=== PATIENT | male | born 1965 | race Two or more races ===

== ENCOUNTER 2020-03-14 13:32 | Emergency (ER) | payer MEDICAID, OTHER ==
[~2020-03-14] VITALS: Ht 172.7 cm; Wt 81.6 kg
[2020-03-14 13:35] VITALS: BP 153/94
[2020-03-14] MEDS ORDERED: cefTRIAXone SOD 1,000 MG VL IM ONE (14:15)
[2020-03-14] MEDS ORDERED: DexAMETHasone SOD PHOS 10MG/1ML VIAL INJ IM ONE (14:15)
== END 2020-03-14 15:23 | disposition home or self-care (01) ==
LOC: ER 13:32
DX: U07.1 COVID-19 (principal); J12.82 Pneumonia due to coronavirus disease 2019; I10 Essential (primary) hypertension
CPT/HCPCS: 36415; 71045; 87426; 96372; 99284; J0696; J1100

== ENCOUNTER 2023-03-07 17:23 | Emergency (ER) | payer MEDICAID ==
[~2023-03-07] VITALS: Ht 172.7 cm; Wt 85.2 kg
[2023-03-07 18:19] VITALS: BP 160/96; PULSE 91; RESP 17; TEMP 97.3; O2SAT 98
[2023-03-07] MEDS ORDERED: CIPR1SUS8 OT (18:40)
[2023-03-07] MEDS ORDERED: CLIN300C70 PO (18:40)
[2023-03-07] MEDS ORDERED: NAP500T PO (18:40)
[2023-03-07] MEDS ORDERED: cefTRIAXone SOD 1,000 MG VL IM ONE (18:45)
[2023-03-07] MEDS ORDERED: KETOROLAC TROMETH 60MG/2ML VIAL IM ONE (18:45)
== END 2023-03-07 18:54 | disposition home or self-care (01) ==
LOC: ER 17:23
DX: H60.92 Unspecified otitis externa, left ear (principal); I10 Essential (primary) hypertension
CPT/HCPCS: 96372; 99284; J0696; J1885

== ENCOUNTER 2024-11-17 14:22 | Emergency (ER) | payer MEDICAID ==
[~2024-11-17] VITALS: Ht 172.7 cm; Wt 79.0 kg
[~2024-11-17 14:22] MED LIST: CIPR1SUS8 OT; CLIN1CAP70 PO; NAP500T PO
--- NOTE | 2024-11-17 15:33 | ED.PDOC ---
History of Present Illness(SKN HPI Comments 59-YEAR-OLD MALE PRESENTS TO THE ER WITH A CHIEF COMPLAINT OF RIGHT LOWER EXTREMITY PAIN. PATIENT REPORTS ON HAVING A POSSIBLE SPIDER BITE TO THE RIGHT INNER ANKLE BUT DID NOT WANT TO CANCEL HIS CRUISE SO DECIDED TO WAIT. WHILE THE PATIENT WAS WAITING HE STARTED NOTICING IRRITATION TO THE AREA WITH YELLOW DISCHARGE. PATIENT DID SEE HIS PCP LAST WEEK AND WAS PRESCRIBED ANTIBIOTICS FOR WHICH ARE NOT WORKING. PATIENT WAS NOT INFORMED BY HIS PCP THEN HAVE ANTIBIOTICS DO NOT WORK TO GO TO THE ER. THESE SYMPTOMS STARTED TWO WEEKS AGO. DENIES CHILLS, FEVER, N/V/D, SOB, CP. NO OTHER ASSOCIATED SYMPTOMS, MODIFIERS, RECENT INJURIES OR SICK CONTACTS PRESENT AT THIS TIME. Chief Complaint: Wound Check Time Seen by MD: 15:30 Primary Care Provider: NEYDA History of Present Illness: Nurses Notes, Medications, Allergies Allergies: Coded Allergies: NO KNOWN ALLERGIES (Unverified , 03/14/20) Home Meds Active Scripts Triamcinolone Acetonide (Triamcinolone Acetonide) 0.1 % Oin, 1 APPLIC TOP TID for 10 Days, #60 GRAMS Prov:RAI BARROSO MD 11/17/24 Bacitracin Zinc (Bacitracin) 500 Unit/Gm Oin, 500 UNIT EX TID for 10 Days, #60 OIN Prov:RAI BARROSO MD 11/17/24 Cefdinir (Cefdinir) 300 Mg Cap, 1 CAP PO BID for 7 Days, #14 CAP Prov:RAI BARROSO MD 11/17/24 Naproxen (NAPROSYN TABLET) 500 Mg Tb, 1 TAB PO BID PRN, #30 TAB 0 Refills Prov:DULCE MARIA RODRIGUEZ 03/07/23 Clindamycin Hcl (Clindamycin Hcl) 300 Mg Cap, 1 CAP PO TID for 7 Days, #21 CAP 0 Refills Prov:DULCE MARIA RODRIGUEZ 03/07/23 Ciprofloxacin-Dexamethasone (Ciprofloxacin/Dexamethaso 0.3-0.1 %) 1 Crystal Crystal, 4 DROP OT BID for 7 Days, #1 BOTTLE 0 Refills Prov:DULCE MARIA RODRIGUEZ 03/07/23 Information Source: Patient Mode of Arrival: Ambulatory Severity: Moderate Timing: Weeks Duration: Since onset Prehospital treatment: None Location: Other (RIGHT INNER ANKLE) Mechanism: Spider (POSSIBLE) Object: None Wound Type: Other (INFECTED DERMATITIS FROM AN INSECT WOUND) Tetanus: Unknown History of: None Associated Signs and Symptoms: Redness, Pain Past Medical History PAST MEDICAL HISTORY: Gout, HTN Surgical History: Denies all surgeries Family History Family History: Reviewed,noncontributory to illness, Unknown Social History Smoker: Non-Smoker Alcohol: Denies ETOH Use Drugs: Denies Drug Use Lives In: Home Constitutional: denies: chills, diaphoresis, fatigue, fever, malaise, sweats, weakness, others EENTM: denies: blurred vision, double vision, ear bleeding, ear discharge, ear drainage, ear pain, ear ringing, eye pain, eye redness, hearing loss, mouth pain, mouth swelling, nasal discharge, nose bleeding, nose congestion, nose pain, photophobia, tearing, throat pain, throat swelling, voice changes, others Respiratory: denies: cough, hemoptysis, orthopnea, SOB at rest, shortness of breath, SOB with excertion, stridor, wheezing, others Cardiovascular: denies: chest pain, dizzy spells, diaphoresis, Dyspnea on exertion, edema, irregular heart beat, left arm pain, lightheadedness, palpitations, PND, syncope, others Gastrointestinal: denies: abdomen distended, abdominal pain, blood streaked bowels, constipated, diarrhea, dysphagia, difficulty swallowing, hematemesis, melena, nausea, poor appetite, poor fluid intake, rectal bleeding, rectal pain, vomiting, others Genitourinary: denies: burning, dysuria, flank pain, frequency, hematuria, incontinence, penile discharge, penile sore, pain, testicle pain, testicle swelling, urgency, others Neurological: denies: dizziness, fainting, headache, left sided numbness, left sided weakness, numbness, paresthesia, pre-existing deficit, right sided numbness, right sided weakness, seizure, speech problems, tingling, tremors, wea kness, others Musculoskeletal: denies: back pain, gout, joint pain, joint swelling, muscle pain, muscle stiffness, neck pain, others Integumetry: reports: wounds (INFECTED DERMATITIS FROM AN INSECT WOUND ON THE RIGHT INNER ANKLE); denies: bruises, change in color, change in hair/nails, dryness, laceration, lesions, lumps, rash, others Allergic/Immunocompromised: denies: Difficulty Healing, Frequent Infections, Hives, Itching, others Hematologic/Lymphatic: denies: anemia, blood clots, easy bleeding, easy bruising, swollen glands, others Endocrine: denies: excessive hunger, excessive sweating, excessive thirst, excessive urination, flushing, intolerance to cold, intolerance to heat, unexplained weight gain, unexplained weight loss, others Psychiatric: denies: anxiety, bipolar disorder, depression, hopeless, panic disorder, schizophrenia, sleepless, suicidal, others All Other Systems: Reviewed and Negative Physical Exam General Appearance: No Apparent Distress, Normal HEENT: Normal ENT Inspection, PERRL/EOMI, Pharynx Normal, TMs Normal Neck: Full Range of Motion, Non-Tender, Normal, Normal Inspection Respiratory: Chest Non-Tender, Lungs Clear, No Accessory Muscle Use, No Respiratory Distress, Normal Breath Sounds Cardiovascular: No Edema, No JVD, No Murmur, No Gallop, Normal Peripheral Pulses, Regular Rate/Rhythm Breast Exam: Deferred Gastrointestinal: No Organomegaly, Non Tender, No Pulsatile Mass, Normal Bowel Sounds, Soft Genitalia: Deferred Pelvic: Deferred Rectal: Deferred Extremities: No calf tenderness, Normal capillary refill, Normal inspection, Normal range of motion, Non-tender, No pedal edema Musculoskeletal : Location: Right Extremity Location: Ankle, Other (Eczematous contact dermatitis to the right foot the heel medial aspect which is growing started with a an insect bite) Apperance: Normal Neurologic: Alert, instrument checker II-XII nml as Tested, No Motor Deficits, Normal Affect, Normal Mood, No Sensory Deficits Cerebellar Function: Normal Reflexes: Normal Skin: Dry, Normal Color, Warm Peripheral Pulses: 1+ carotid (R), 1+ carotid (L) Lymphatic: No Adenopathy Was a procedure done? Was a procedure done?: No Differential Diagnosis (INTG) Differential Diagnosis: Insect Envenomation Differential Diagnosis: Contact Dermatitis, Drug Reaction, Impetigo Differential Diagnosis: N/A Abscess: N/A Differential Diagnosis: N/A X-Ray, Labs, Meds, VS Vital Signs Date Time Temp Pulse Resp B/P (MAP) Pulse Ox O2 Delivery O2 Flow Rate FiO2 11/17/24 14:24 98.1 68 18 148/95 99 98.1 X-Ray, Labs, Meds, VS Comment Course in the [facility] patient have this contact dermatitis which is spreading of the right foot ankle has been happening for a week now and not better patient had used some antibiotics Patient will get Rocephin 1 g IM and he will be discharged with a cefdinir bacitracin and triamcinolone Time of 1ST Reevaluation: 16:00 Reevaluation 1ST: Unchanged Time of 2ND Reevaluation: 15:46 Reevaluation 2ND: Unchanged Patient Education/Counseling: Diagnosis, Treatment, Prognosis, Need For Follow Up Family Education/Counseling: Diagnosis, Treatment, Prognosis, Need For Follow Up SEPSIS Sepsis Screen Date sepsis recognized/suspect: Nov 17, 2024 Time Sepsis recognized/suspect: 1425 Recent Procedure: No On Antibiotic Therapy: No Respiratory Rate >20: No Heart Rate >90: No Temp<36 C (96.8 F) or >38.3 C: No SBP <90 or MAP <65 mmHG: No New Acute Mental Status Change: No Is the patient on CPAP, BIPAP,: No Vital Signs Date Time Temp Pulse Resp B/P (MAP) Pulse Ox O2 Delivery O2 Flow Rate FiO2 11/17/24 14:24 98.1 68 18 148/95 99 98.1 Departure 1 Departure Time of Disposition: 15:36 Impression: Primary Impression: Insect bite Additional Impression: Contact dermatitis and eczema Disposition: 01 HOME / SELF CARE / HOMELESS Condition: Fair Additional Instructions: Clean dry apply 2 ointment separately every 3 hours e-Prescriptions Triamcinolone Acetonide (Triamcinolone Acetonide) 0.1 % Oin 1 APPLIC TOP TID for 10 Days, #60 GRAMS Prov: RAI BARROSO MD 11/17/24 Bacitracin Zinc (Bacitracin) 500 Unit/Gm Oin 500 UNIT EX TID for 10 Days, #60 OIN Prov: RAI BARROSO MD 11/17/24 Cefdinir (Cefdinir) 300 Mg Cap 1 CAP PO BID for 7 Days, #14 CAP Prov: RAI BARROSO MD 11/17/24 Discharged With: Self Critical Care Note Critical Care Time?: No Stability Stability form required: No Heart Score Heart Score: Heart Score Response (Comments) Value History N/A 0 EKG N/A 0 Age 45-64 1 Risk Factors 1 or 2 risk factors 1 Troponin N/A 0 Total 2 I personally scribed for RAI BARROSO MD ([email or web address]) on 11/17/24 at 15:33. Electronically submitted by Graham Banks ([email or web address]). RAI BARROSO MD Nov 17, 2024 15:33
[2024-11-17] MEDS ORDERED: TRIA0.1O TOP (15:44)
[2024-11-17] MEDS ORDERED: CEFD300C2 PO (15:44)
[2024-11-17] MEDS ORDERED: BACI-5 EX (15:44)
[2024-11-17 16:24] VITALS: BP 142/91; PULSE 63; RESP 18; TEMP 98.4; O2SAT 98
== END 2024-11-17 16:28 | disposition home or self-care (01) ==
LOC: ER 14:22
DX: L25.9 Unspecified contact dermatitis, unspecified cause (principal); I10 Essential (primary) hypertension; W57.XXXA Bitten or stung by nonvenomous insect and other nonvenomous arthropods, initial encounter; Y93.89 Activity, other specified; Y92.89 Other specified places as the place of occurrence of the external cause; Y99.8 Other external cause status
CPT/HCPCS: 96365; 99284; J0696